=== PATIENT | male | born 1985 | race Caucasian/White ===

== ENCOUNTER 2020-05-03 01:00 | Emergency (ER) | payer BC ==
[~2020-05-03] VITALS: Ht 188 cm; Wt 117.9 kg
--- NOTE | 2020-05-03 01:27 | NUR ---
at bedside for assessment
--- NOTE | 2020-05-03 01:31 | NUR ---
X ray noted at bedside at this time
[2020-05-03] MEDS ORDERED: DOXYCYCLINE HYCLATE 100 MG TABLET ONE (02:13)
--- NOTE | 2020-05-03 02:13 | NUR ---
Patient discharged to home in stable condition. Able to ambulate with steady gait, no signs of acute dsitress noted, all needs met, all belongigns taken with patient. Written and verbal after care instructions given. Patient verbalizes understanding of instructions. Stressed follow up or return to ER for worsening s/s.
[2020-05-03] MEDS ORDERED: DOXYCYCLINE HYCLATE 100 MG TABLET PO ONE (02:15)
[2020-05-03 02:25] VITALS: BP 151/87
== END 2020-05-03 02:14 | disposition home or self-care (01) ==
LOC: ER 01:06
DX: R05 Cough (principal); R91.8 Other nonspecific abnormal finding of lung field; F41.9 Anxiety disorder, unspecified; K21.9 Gastro-esophageal reflux disease without esophagitis
CPT/HCPCS: 71045; A4663